=== PATIENT | male | born 1945 | race Caucasian/White ===

== ENCOUNTER 2022-09-09 08:34 | Day surgery (SDC) | payer BC, SELFPAY ==
--- NOTE | 2022-09-08 10:19 | HO.ANESPROP2 ---
Documented by User: Nargis Bolanos NP 09/08/22 10:25 HPI - Anesthesia Eval Consult details Narrative: 76[facility] Past Medical History Medical History CAD (coronary artery disease) Dental root implant present Eczema Gout HTN (hypertension) Hyperlipemia Vertigo Surgical History Surgical History H/O colonoscopy H/O radical prostatectomy History of appendectomy S/P trigger finger release Social History Social History Patient Tobacco Use Status: Former Tobacco user Are you DNR?: No Advance Directives: No Advance Directives Information Provided: Yes Nutrition Risks: No Nutritional Risk Meds Allergies Allergy/AdvReac Type Severity Reaction Status Date / Time cat dander Allergy Unknown Verified 09/09/22 09:18 clindamycin Allergy Unknown Verified 09/09/22 09:18 lactose Allergy Unknown Verified 09/09/22 09:18 mold Allergy Unknown Verified 09/09/22 09:18 dust mites Allergy Unknown Uncoded 09/09/22 09:18 tree pollen Allergy Unknown Uncoded 09/09/22 09:18 Home Medications Medication Instructions Recorded Confirmed Last Taken Type Centrum Silver 09/08/22 09/02/22 History amlodipine 10 mg tablet 1 tab PO DAILY 09/08/22 09/08/22 Unknown History atorvastatin 10 mg tablet 1 tab PO DAILY 09/08/22 09/08/22 Unknown History coenzyme Q10 100 mg capsule (Co mg PO 09/08/22 09/02/22 History Q-10) fluticasone propionate 50 intranasal 09/08/22 09/08/22 09/09/22 History mcg/actuation nasal spray,suspension garlic 400 mg tablet,delayed mg PO 09/08/22 09/02/22 History release hydrochlorothiazide 25 mg tablet 1 tab PO DAILY 09/08/22 09/08/22 Unknown History loratadine 10 mg tablet mg 09/08/22 Unknown History losartan 100 mg tablet 1 tab PO DAILY 09/08/22 09/08/22 Unknown History magnesium oxide 140 mg capsule mg PO 09/08/22 09/02/22 History metoprolol succinate 50 mg 1 tab PO DAILY 09/08/22 09/08/22 09/09/22 History tablet,extended release 24 hr omega-3 fatty acids-vitamin E cap 09/08/22 09/02/22 History 1,000 mg capsule ubiquinol 100 mg-pyrroloquinoline cap PO 09/08/22 Unknown History quinone (coenzyme PQQ) 10 mg capsule Exam Exam Date and Time: September 08, 2022 1019 Assessment and Plan Assessment Anesthesia Assessment: Chart Reviewed Documented by User: Anastacia Shepherd MD 09/09/22 09:52 PMF Active Problems Active Problems: Denies chest pain. Had ?CT angio secondary h/o HTN and strong family h/o cardiovascular disease. Jayson has 'moderate' CAD. No records available. Seen by cardiology @ [facility]. Asymptomatic Past Medical History Medical History CAD (coronary artery disease) Dental root implant present Eczema Gout HTN (hypertension) Hyperlipemia Vertigo Family History Family history of problems with anesthesia: No Surgical History Surgical History H/O colonoscopy H/O radical prostatectomy History of appendectomy S/P trigger finger release History of Problems with Anesthesia: No Social History Social History Patient Tobacco Use Status: Former Tobacco user Are you DNR?: No Advance Directives: No Advance Directives Information Provided: Yes Nutrition Risks: No Nutritional Risk Meds Allergies Allergy/AdvReac Type Severity Reaction Status Date / Time cat dander Allergy Unknown Verified 09/09/22 09:18 clindamycin Allergy Unknown Verified 09/09/22 09:18 lactose Allergy Unknown Verified 09/09/22 09:18 mold Allergy Unknown Verified 09/09/22 09:18 dust mites Allergy Unknown Uncoded 09/09/22 09:18 tree pollen Allergy Unknown Uncoded 09/09/22 09:18 Home Medications Medication Instructions Recorded Confirmed Last Taken Type Centrum Silver 09/08/22 09/02/22 History amlodipine 10 mg tablet 1 tab PO DAILY 09/08/22 09/08/22 Unknown History atorvastatin 10 mg tablet 1 tab PO DAILY 09/08/22 09/08/22 Unknown History coenzyme Q10 100 mg capsule (Co mg PO 09/08/22 09/02/22 History Q-10) fluticasone propionate 50 intranasal 09/08/22 09/08/22 09/09/22 History mcg/actuation nasal spray,suspension garlic 400 mg tablet,delayed mg PO 09/08/22 09/02/22 History release hydrochlorothiazide 25 mg tablet 1 tab PO DAILY 09/08/22 09/08/22 Unknown History loratadine 10 mg tablet mg 09/08/22 Unknown History losartan 100 mg tablet 1 tab PO DAILY 09/08/22 09/08/22 Unknown History magnesium oxide 140 mg capsule mg PO 09/08/22 09/02/22 History metoprolol succinate 50 mg 1 tab PO DAILY 09/08/22 09/08/22 09/09/22 History tablet,extended release 24 hr omega-3 fatty acids-vitamin E cap 09/08/22 09/02/22 History 1,000 mg capsule ubiquinol 100 mg-pyrroloquinoline cap PO 09/08/22 Unknown History quinone (coenzyme PQQ) 10 mg capsule Exam Height,Weight and Vital Signs: Height 5 ft 8 in Weight 79.379 kg Vital Signs Temp Pulse Resp BP Pulse Ox O2 Del Method 09/09/22 09:15 98.1 F 83 18 159/73 H 100 Room Air Airway Mallampati Class: II TM Dist: >3cm Neck ROM: Limited Loose/Missing/Broken Teeth: No (Denies broken, loose, missing teeth) Heart: RRR Lungs: CTAB Assessment and Plan Assessment Anesthesia Assessment: Anesthesia Plan Discussed Final Anesthetic Review Family History of Problems with Anesthesia: No History of Problems with Anesthesia: No NPO: Yes ASA Class: III Final Preanesthetic Review: No Changes in Pt Med Stat, Meds/Allgs Chart Reviewed, Consent Obtained/Reviewed and Anes Risks/Benef Reviewed Patient Risk: Intermediate Procedure Risk: Low Assessment/Block/Sedation in SS: Assess/Block/Sedation-SS Anesthetic Plan Anesthetic Plan: MAC: Disposition: Standard PACU
[2022-09-09 09:15] VITALS: BP 159/73; PULSE 83; RESP 18; TEMP 36.7; O2SAT 100
[2022-09-09 09:16] VITALS: BMI 26.6
[2022-09-09] MEDS: Lactated Ringers 1,000 ML 100 ML IVCONT (09:17)
--- NOTE | 2022-09-09 10:09 | MHC.SHP ---
Pre-Procedural Eval Section A Date of Service: 09/09/22 Section B Chief Complaint: screening Details of Present Illness: see H*P no changes Relevant Social History: None Present Medications: see Short Stay Collaborative assessment Medical History: No relevant PMH History of Previous Operations: No relevant previous surgery Allergies: Allergies Allergy/AdvReac Type Severity Reaction Status Date / Time cat dander Allergy Unknown Verified 09/09/22 09:18 clindamycin Allergy Unknown Verified 09/09/22 09:18 lactose Allergy Unknown Verified 09/09/22 09:18 mold Allergy Unknown Verified 09/09/22 09:18 dust mites Allergy Unknown Uncoded 09/09/22 09:18 tree pollen Allergy Unknown Uncoded 09/09/22 09:18 Review of Systems Sugical H&P ROS: Negative: Constitution, Cardiovascular, Respiratory, Neurological, Psychiatric, Hem-Onc, Allergic/Immunologic, Gastrointestinal, Genitourinary, Musculoskeletal, Integumentary, Endocrine and Eyes/Ears/Nose/Throat Exam Surgical H&P Exam: Normal: HEENT, Normal: Heart, Normal: Lungs, Normal: Extremities, Normal: Abdomen, Normal: Skin and Normal: Neurological Plan Diagnosis/Plan: Unchanged I have reviewed the history and physical and performed a pertinent physical examination on my patient. No changes have occurred unless specified. Time Spent With Patient Time: Total time managing care of this patient today ____ minutes.
--- NOTE | 2022-09-09 10:42 | PM.OP ---
Brief Operative Note Date of Service: 09/09/22 Pre-op diagnosis: screening Post-op diagnosis: same Procedure: colonoscopy Surgeon: Jake Barahona Anesthesia: MAC Was an Concrete Pipe Machine Operator used for this Procedure?: No Estimated blood loss (mL): 5 Pathology: other Condition: stable Disposition: PACU
[2022-09-09 10:43] VITALS: BP 96/57; PULSE 70; RESP 16; TEMP 37.1; O2SAT 98
[2022-09-09 10:58] VITALS: BP 104/65; PULSE 61; RESP 16; TEMP 37.1; O2SAT 97
--- NOTE | 2022-09-09 11:10 | OP_ITS ---
SURGEON: Jake Barahona MD INDICATIONS: Colon cancer screening and prior history of adenomatous colon polyps. PREOPERATIVE DIAGNOSIS: POSTOPERATIVE DIAGNOSIS: PROCEDURE PERFORMED: Colonoscopy to the terminal ileum with biopsy. ESTIMATED BLOOD LOSS: COMPLICATIONS: ANESTHESIA: Monitored anesthesia care. ASSISTANTS: SPECIMENS: DESCRIPTION OF PROCEDURE: The history and physical was performed. The risks and benefits of the procedure were explained to the patient. Informed consent was obtained. The patient was placed in the left lateral decubitus position. A digital rectal exam was performed and was found to be normal. The Olympus pediatric video colonoscope was introduced into the rectum and advanced to the cecum without difficulty. The cecum was identified by transillumination, palpation, and identification of ileocecal valve. Examination was performed. The scope was removed. He tolerated the procedure well was taken to recovery area in stable condition. FINDINGS: The procedure was performed on 09/09/2022. The terminal ileum was examined and appeared normal. The visualized colonic mucosa was within normal limits without evidence of masses or ulcers. Multiple colonic polyps were removed with biopsy forceps. All measured less than 10 mm. These were located in the cecum, four at 80 cm and three at 70 cm. There was scattered diverticulosis. There was some stool coating the mucosa limiting the sensitivity examination for detection of small polyps. This was washed and suctioned as best possible. Retroflexed examination showed small internal hemorrhoids. IMPRESSION: Colon polyps. RECOMMENDATION: Follow up the biopsy results. MD PETER Bruner/MARIELLE / [id number] MTDD
== END 2022-09-09 11:54 | disposition home or self-care (01) ==
PROVIDERS: PCP Internal Medicine; Visit Provider Internal Medicine Gastroenterology
PROC: 0DJD8ZZ Inspection of Lower Intestinal Tract, Via Natural or Artificial Opening Endoscopic (ICD-10-PCS; CPT 45378; principal; 2022-09-09 10:10)
DX: Z12.11 Encounter for screening for malignant neoplasm of colon (principal); Z86.010 Personal history of colon polyps; Z80.0 Family history of malignant neoplasm of digestive organs; D12.0 Benign neoplasm of cecum; K63.5 Polyp of colon; K57.30 Diverticulosis of large intestine without perforation or abscess without bleeding; K64.8 Other hemorrhoids; I25.10 Atherosclerotic heart disease of native coronary artery without angina pectoris; I10 Essential (primary) hypertension; M10.9 Gout, unspecified; E78.00 Pure hypercholesterolemia, unspecified; Z79.899 Other long term (current) drug therapy; Z88.1 Allergy status to other antibiotic agents; Z85.46 Personal history of malignant neoplasm of prostate; Z87.891 Personal history of nicotine dependence
CPT/HCPCS: 45380; 88305; J2370